=== PATIENT | male | born 1930 | race Caucasian/White ===

== ENCOUNTER 2018-02-23 10:41 | Emergency (ER) | payer MEDICARE, BC ==
[~2018-02-23] VITALS: Ht 167.6 cm; Wt 81.7 kg
[2018-02-23] MEDS ORDERED: ALBUTEROL SULFATE 2.5MG/0.5ML ONE (11:27)
[2018-02-23] MEDS ORDERED: ALBUTEROL SULFATE 2.5 MG/3 ML NPPB ONE (11:30)
[2018-02-23 13:04] VITALS: BP 138/70
== END 2018-02-23 13:18 | disposition home or self-care (01) ==
LOC: ED 11:42
DX: J06.9 Acute upper respiratory infection, unspecified (principal)
CPT/HCPCS: 71045; 93005; 94640; 99284; J7512; J7613

== ENCOUNTER → 2018-10-10 | Outpatient (CLI) | payer MEDICARE, BC | END | disposition home or self-care (01) | LOC: CVU 13:50 | PROVIDERS: ATTEND Internal Medicine Cardiovascular Disease | DX: I65.22 Occlusion and stenosis of left carotid artery (principal); I10 Essential (primary) hypertension | CPT/HCPCS: 93880 ==

== ENCOUNTER 2020-01-29 16:13 | Emergency (ER) | payer MEDICARE, BC ==
[~2020-01-29] VITALS: Ht 167.6 cm; Wt 79.0 kg
--- NOTE | 2020-01-29 16:47 | NUR ---
[employer]: PT TO ROOM FROM [facility]
[2020-01-29] MEDS ORDERED: SODIUM CHLORIDE FLUSH 10ML SYR IVF ONE (17:30)
[2020-01-29 17:34] LABS: MICROSCOPIC AUTO
--- NOTE | 2020-01-29 17:46 | NUR ---
PT CAME IN CO OF LEFT FLANK PAIN THAT STARTED THIS MORNING. TOOK "ALEVE" WHICH DIDNT HELP. PT SAID HE DOESNT THINK HE NEEDS PAIN MEDS AT THIS TIME. IV STARTED. LABS DRAWN. UA SENT. EKG COMPLETE.
[2020-01-29 17:55] LABS: BASOPHILS # (AUTO) 0.06 x10^3/uL (0-0.1); BASOPHILS % (AUTO) 1 % (0-1); EOSINOPHILS # (AUTO) 0.05 x10^3/uL (0-0.4); EOSINOPHILS % (AUTO) 1 % (1-7); LYMPHOCYTES # (AUTO) 1.11 x10^3/uL (1-3.4); LYMPHOCYTES % (AUTO) 17 % (22-44); MD NO; MEAN CORPUSCULAR HEMOGLOBIN 32.3 pg (27.5-34.5); MEAN CORPUSCULAR HGB CONC 33.3 g/dL (33.2-36.2); MEAN CORPUSCULAR VOLUME 97.2 fL (81-97); MEAN PLATELET VOLUME 9.1 fL (7.4-10.4); MONOCYTES # (AUTO) 0.85 x10^3/uL (0.2-0.8); MONOCYTES % (AUTO) 13 % (2-9); NEUTROPHILS # (AUTO) 4.44 x10^3/uL (1.8-6.8); NEUTROPHILS % (AUTO) 68 % (42-75); PLATELET COUNT 158 x10^3/uL (130-400); RED BLOOD COUNT 4.65 x10^6/uL (4.38-5.82); RED CELL DISTRIBUTION WIDTH 13.9 % (9.4-14.8)
[2020-01-29 18:07] LABS: ALANINE AMINOTRANSFERASE 26 U/L (12-78); ANION GAP 9 mmol/L (5-15); CALCIUM 8.9 mg/dL (8.5-10.1); CHLORIDE 104 mmol/L (98-107); CREATININE 1.57 mg/dL (0.7-1.3)
[2020-01-29 18:09] LABS: ALKALINE PHOSPHATASE 77 U/L (45-117); BILIRUBIN,TOTAL 1.1 mg/dL (0.2-1.0); TOTAL PROTEIN 7.4 g/dL (6.4-8.2)
[2020-01-29] MEDS ORDERED: ONDANSETRON 2MG/ML, 2ML ONE (18:11)
[2020-01-29] MEDS ORDERED: MORPHINE SULFATE 4 MG/ML, 1ML ONE (18:11)
--- NOTE | 2020-01-29 18:25 | NUR ---
DURING ADM OF MEDS IT WAS NOTICED THAT PT WAS IN BIGEMINY. NOTIFED. ONLY 2MG OF ZOFRAN DELEIVERED. THE OTHER 2 WAS HELD
[2020-01-29] MEDS ORDERED: ONDANSETRON 2MG/ML, 2ML IVPush ONE (18:30)
[2020-01-29] MEDS ORDERED: MORPHINE SULFATE 4 MG/ML, 1ML IVPush PRN (18:30)
[2020-01-29] MEDS ORDERED: OMNIPAQUE 350 MG/ML, 100ML BOTTLE ONE (18:50)
[2020-01-29 19:10] VITALS: BP 160/66
--- NOTE | 2020-01-29 19:10 | NUR ---
PT REPORTS PAIN IMPROVEMENT
[2020-01-29] MEDS ORDERED: KETOROLAC 30 MG/1 ML ONE (19:44)
[2020-01-29] MEDS ORDERED: KETOROLAC 30 MG/1 ML IVPush ONE (20:00)
== END 2020-01-29 20:07 | disposition home or self-care (01) ==
LOC: ED 18:20
DX: N20.1 Calculus of ureter (principal); R94.31 Abnormal electrocardiogram [ECG] [EKG]; I10 Essential (primary) hypertension; E78.00 Pure hypercholesterolemia, unspecified
CPT/HCPCS: 36415; 74177; 80053; 81001; 83690; 85025; 93005; 96374; 96375; 99285; J1885; J2270; J2405; Q9967

== ENCOUNTER 2020-02-04 09:52 | Emergency (ER) | payer MEDICARE, BC ==
[~2020-02-04] VITALS: Ht 167.6 cm; Wt 77.8 kg
--- NOTE | 2020-02-04 10:24 | NUR ---
PT WAS SEEN HERE LAST MONDAY FOR KIDNEY STONES. SENT HOME WITH PERCOCET RX. PT STATES HE HAS BEEN CONSTIPATED AND HAS NO APPETITE. LAST BM WAS 4 DAYS AGO. NO VOMITING, NO LONGER WITH FLANK PAIN UA COLLECTED AND TUBED TO LAB FOR ANALYSIS
--- NOTE | 2020-02-04 11:12 | NUR ---
enema ordered from pharmacy
[2020-02-04] MEDS ORDERED: PINK LADY ENEMA 490 ML BOTTLE PR ONE (11:30)
--- NOTE | 2020-02-04 11:53 | NUR ---
DESPITE NATURAL RESOURCES MANAGER'S HESISTANCY (PATIENT REPORTS HX OF EXTERNAL AND INTERNAL HEMMORHOIDS) MEDICATED PER EMAR (EMEMA ADMINISTERED) AFTER PROVIDER TO VISUALIZE IF OBVIOUS HEMORRHOIDS THAT COULD BE INJURED
--- NOTE | 2020-02-04 12:09 | NUR ---
POST ENEMA- PATIENT WITH SIGNIFICANT FLATUS BUT NO STTOL. ASKING TO HOME HOME TO SIT ON OWN TOILET PROVIDER MADE AWARE
--- NOTE | 2020-02-04 12:19 | NUR ---
PROVIDER ASKED FOR ORDER FOR RELISTOR (PATIENT WITH OPIOID CONSTIPATION WITH NO RELIEF WITH ENEMA). PROVIDER CONSIDERING. PATIENT ASKING TO LEAVE. PROVIDER REMINDED OF NEED FOR D/C PAPERWORK. PROVIDER AWARE-
[2020-02-04] MEDS ORDERED: METHYLNALTREXONE 12 MG/0.6 ML SYR SQ ONE ×2 (12:35→13:00)
[2020-02-04] MEDS ORDERED: MAGNESIUM CITRATE 300ML ORAL SOL ONE (12:50)
[2020-02-04 12:58] VITALS: BP 132/62
--- NOTE | 2020-02-04 12:58 | NUR ---
PROVIDER TO BEDSIDE: WOULD LIKE PATIENT TO HAVE BM BEFORE HE IS DISCHARGED: MEDICATED PER EMAR WITH RELISTOR AND 1/2 BOTTLE OF MAG CITRATE
[2020-02-04] MEDS ORDERED: MAGNESIUM CITRATE 300ML ORAL SOL PO ONE (13:00)
--- NOTE | 2020-02-04 13:41 | NUR ---
WITH REASSESSMENT-NO BM THUS FAR. 2ND ENEMA ADMINISTERD PER ORDER/EMAR
--- NOTE | 2020-02-04 14:48 | NUR ---
PATIENT WITH SMALL BM. REVIEWED HOME POC. PATIENT ESCORTED HOME (WHICH IS NOT FAR AWAY) BY SON. DIAPER APPLIED JUST IN CASE
== END 2020-02-04 14:50 | disposition home or self-care (01) ==
LOC: ED 10:38
DX: K59.00 Constipation, unspecified (principal); R10.9 Unspecified abdominal pain; I10 Essential (primary) hypertension; E78.00 Pure hypercholesterolemia, unspecified
CPT/HCPCS: 74021; 96372; 99284